=== PATIENT | female | born 1975 | race Caucasian/White ===

== ENCOUNTER 2017-05-09 13:28 | Inpatient (IN) ==
[2017-05-09] MEDS ORDERED: SALINE FLUSH 10ml SYRINGE IVF PRN (13:44)
[2017-05-09] MEDS ORDERED: NS 1,000 ML IV ONE (13:53)
[2017-05-09] MEDS ORDERED: HYDROMORPHONE 2 MG/ML INJECTION IVP ONE ×2 (13:53→16:54)
[2017-05-09] MEDS ORDERED: ONDANSETRON 4 MG/2 ML INJECTION IVP ONE ×2 (13:53→16:39)
--- NOTE | 2017-05-09 13:58 | Emergency Department Report ---
General Adult HPI - General Chief complaint: Abdominal Pain <Marquise Rose - 05/09/17 13:58> Stated complaint: Abd Pain <Marquise Rose 05/09/17 13:58> Time Seen by Provider: 05/09/17 13:29 <Marquise Rose - 05/09/17 13:58> Source: patient <Marquise Rose - 05/09/17 13:58> Mode of arrival: ambulatory <Marquise Rose 05/09/17 13:58> Limitations: no limitations <Marquise Rose 05/09/17 13:58> - History of Present Illness HPI narrative: 41-year-old female presents to emergency department with a chief complaint of abdominal pain. Patient noted onset of symptoms 4 days ago while at home. Patient describes the pain as being located in the center of the abdomen around the umbilicus and radiating toward a large hernia on her right- hand side. Pain is sharp. Pain is moderate. No other radiation. Patient denies any trauma, travel, poorly prepared food or recent antibiotic use. Patient states that she had a hernia repaired the past by Dr. Justin and believes that her symptoms have recurred. She was at home when her symptoms began. Symptoms have been persisted in nature since onset. She does not note any exacerbating or remitting factors. No other complaints or associated symptoms. <Marquise Rose Cain - 05/09/17 13:58> - Related Data Home Medications Medication Instructions Recorded Confirmed Albuterol Sulfate [Proair Hfa] 2 puff INH Q4H PRN #0 04/27/15 05/09/17 Amlodipine Besylate 10 mg PO DAILY #0 03/30/16 05/09/17 Budesonide/Formoterol 80/4.5 1 puff INH BID 04/04/17 05/09/17 [Symbicort Inhaler] Levothyroxine Sodium 300 mcg PO ACB 05/09/17 05/09/17 <MiltonMarquise Barlow - 05/09/17 13:58> Allergies Allergy/AdvReac Type Severity Reaction Status Date / Time lisinopril Allergy Intermediate TONGUE Verified 05/09/17 13:43 SWELLING propranolol Allergy Intermediate TONGUE Verified 05/09/17 13:43 SWELLING <MiltonMarquise Barlow - 05/09/17 13:58> Review of Systems Constitutional: Denies: fever, chills <Marquise Rose 05/09/17 13:58> Eyes: Denies: eye pain, vision change <Marquise Rose 05/09/17 13:58> ENT: Denies: ear pain, throat pain <Marquise Rose 05/09/17 13:58> Cardiovascular: Denies: chest pain, palpitations <Marquise Rose 05/09/17 13: 58> Respiratory: Denies: cough, dyspnea <Marquise Rose 05/09/17 13:58> Gastrointestinal: Reports: abdominal pain, nausea, vomiting. Denies: diarrhea <Marquise Rose 05/09/17 17:59> Genitourinary: Denies: urgency, dysuria <Marquise Rose 05/09/17 13:58> Musculoskeletal: Denies: back pain, arthralgia <Marquise Rose 05/09/17 13:58 > Integumentary: Denies: erythema, rash <Marquise Rose 05/09/17 13:58> Neurological: Denies: headache, numbness <Marquise Rose 05/09/17 13:58> Psychiatric: Denies: anxiety, depression <Marquise Rose 05/09/17 13:58> Endocrine: Denies: fatigue, heat or cold intolerance <Marquise Rose 13:58> Hematological/Lymphatic: Denies: easy bleeding, easy bruising <Marquise Rose 05/09/17 13:58> Allergic/Immunologic: Denies: facial swelling, urticaria <Marquise Rose 06/17 13:58> FOR[facility]LY [facility] Patient Stated Medical History Heart Murmur Yes Hypertension Yes Asthma Yes Chronic Obstructive Pulmonary Yes Disease (COPD) Sleep Apnea Yes Gastroesophageal Reflux Yes Disease Other Yes: cancer MRSA Yes Bipolar Disorder Yes Depression Yes Post Menopausal No Now No <Han An 05/09/17 17:44> Patient Stated Medical History Heart Murmur Yes Hypertension Yes Asthma Yes Chronic Obstructive Pulmonary Yes Disease (COPD) Sleep Apnea Yes Gastroesophageal Reflux Yes Disease Other Yes: cancer MRSA Yes Bipolar Disorder Yes Depression Yes Post Menopausal No Now No <Marquise Rose 05/09/17 13:58> Surgical History: Hernia repair <Marquise Rose 05/09/17 13:58> Family History: Reviewed and noncontributory. <Marquise Rose 05/09/17 13:58> - Social History Smoking status: Current every day smoker <Marquise Rose 05/09/17 13:58> Substance use type: does not use <Marquise Rose 05/09/17 13:58> Alcohol intake frequency: does not drink <Marquise Rose 05/09/17 13:58> Physical Exam - Limitations Limitations: no limitations <Marquise Rose 05/09/17 13:58> - General General appearance: alert, in no apparent distress <Marquise Rose 05/09/17 13:58> - Normal Exams: Head:: Normocephalic without trauma <Marquise Rose 05/09/17 13:58> Eyes:: Pupils are PERRLA w/ EOMI, No scleral icterus, irritation, or foreign bodies noted <Marquise Rose 05/09/17 13:58> ENMT:: No facial trauma, nasal exudates, pharyngeal erythema, or exudates are noted <Marquise Rose 05/09/17 13:58> Dental: No fractured, loose, or missing teeth noted <Marquise Rose 05/09/17 13:58> Neck:: Full range of motion, without adenopathy, JVD, bruits or thyromegaly < Marquise Rose 05/09/17 13:58> Chest/Respirations:: Clear all echevarria, with good airflow, and symmetry bilaterally <Marquise Rose 05/09/17 13:58> Cardiovascular:: Regular rate and rhythm, without murmur or gallop, Pulses 2+ all extremities, capillary refill, <2 seconds all extremities <Marquise Rose 05/09/17 13:58> Abdomen:: Bowel sounds positive, non-distended (Soft. Large abdominal wall hernia noted to R lateral abdomen. no erythema over hernia. No rebound or guarding. Tenderness to palpation over the hernia and right abdomen. NO CVAT.) , no hepatosplenomegaly <Marquise Rose 05/09/17 17:59> Lymphatic:: No lymphadenopathy, or lymphedema noted <Marquise Rose 05/09/17 13:58> Musculoskeletal:: No tenderness, or deformity noted, good range of motion, all extremities <Kalen Rosek Cain 05/09/17 13:58> Integumentary:: No rashes, hives, or bruising noted, hair and nails, without abnormality <Marquise Rose 05/09/17 13:58> Neurological:: Patient is alert, and oriented, cranial nerves, motor/sensory/ cerebellar, exams w/o gross deficits, to observation <MiltonMarquise Cain 13:58> Psychiatric:: Patient exhibits, appropriate attention, emotion and affect < RoseMarquise Cain 05/09/17 13:58> Course Vital Signs Temperature 98.0 F 05/09/17 13:34 Pulse Rate 88 05/09/17 13:34 Respiratory Rate 18 05/09/17 13:34 Blood Pressure 187/113 H 05/09/17 13:34 Pulse Oximetry 98 05/09/17 13:34 Temperature 98.1 F 05/09/17 17:34 Pulse Rate 71 05/09/17 17:34 Respiratory Rate 20 05/09/17 17:34 Blood Pressure 108/74 05/09/17 17:34 Pulse Oximetry 96 05/09/17 17:34 <Marquise Rose 05/09/17 13:58> Medical Decision Making - [facility] Narrative Medical decision making narrative: Labs / imaging were discussed in detail with the patient and questions are answered. Patient is given gentle IV hydration. Patient is given parental narcotic and antiemetic medications intravenously with improvement of symptoms. Patient is discussed with Dr. Justin of general surgery who agrees to admit the patient to his service for treatment of the small bowel obstruction. Patient is in agreement with the current plan of management. She is admitted to the hospital in improved condition. No further orders from accepting physician who is in agreement with the current plan of management. Patient is admitted to the hospital for further evaluation and treatment. Patient has been made nothing by mouth in the emergency department. After seeing the patient and evaluating the patient Dr. Justin has requested the patient be admitted to the service of the hospitalist. Dr. Emiliano Bates agrees to admit the patient to his service. No further orders from accepting physician is in agreement with the current plan of management. <Marquise Rose Cain - 05/09/17 17:59> - Differential Diagnosis Hernia, SBO, Viral Syndrome, abdominal pain <Marquise Rose Cain - 05/09/17 17:59> - Lab Data Result diagrams: 05/09/17 14:00 05/09/17 14:00 <Marquise Rose Cain - 05/09/17 13:58> Lab Results 05/09/17 05/09/17 05/09/17 Range/Units 14:00 14:00 14:00 WBC 9.1 (4.5-11.0) T/MM3 RBC 4.64 (4.00-5.20) M/MM3 Hgb 13.6 (12-16) GM/DL Hct 42.0 (36-46) % MCV 90.5 (80-100) UM3 MCH 29.3 (26-34) UUG MCHC 32.4 (31-37) GM/DL RDW Std Deviation 53.7 H (36.9-50.2) FL Plt Count 342 (130-400) T/MM3 MPV 9.1 L (9.4-12.4) UM3 Immature Gran % (Auto) 0.4 (0.0-0.5) % Neut % (Auto) 66.2 H (33-66) % Lymph % (Auto) 24.2 (23-45) % [place] % (Auto) 6.6 (0-9.0) % Eos % (Auto) 1.9 (0-4) % Baso % (Auto) 0.7 (0-2) % Neut # 6.0 (1.8-7.7) T/MM3 Lymph # 2.2 (1-4.8) T/MM3 [place] # 0.6 (0-0.8) T/MM3 Eos # 0.2 (0-0.5) T/MM3 Baso # 0.1 (0-0.2) T/MM3 Abs Immat Gran (auto) 0.04 H (0.00-0.03) T/MM3 Turbidity < 20 (0-20) Sodium 141 (134-144) MEQ/L Potassium 3.8 (3.6-5) MEQ/L Chloride 101 (98-107) MEQ/L Carbon Dioxide 30 (22-30) MEQ/L Anion Gap 10 (5-15) MEQ/L BUN 12.0 (7-17) MG/DL Creatinine 1.0 (0.7-1.2) MG/DL GFR Calculation 61 BUN/Creatinine Ratio 12 (6-26) RATIO Glucose 105 (65-110) MG/DL Calculated Osmolality 271 (261-280) MOSM/KG Calcium 9.1 (8.4-10.2) MG/DL Total Bilirubin 2.10 H (0.20-1.30) MG/DL Icterus Index < 2 (0-7) AST 30 (14-36) U/L ALT 43 (9-52) U/L Alkaline Phosphatase 50 (38-126) U/L Troponin I < 0.012 (0-0.12) ng/ml Total Protein 7.0 (6.3-8.2) G/DL Albumin 3.9 (3.5-5.0) G/DL Globulin 3.1 (2.4-3.6) G/DL Albumin/Globulin Ratio 1.3 (1.1-2.2) RATIO Lipase 62 (23-300) U/L Plasma Lactate 1.3 (0.6-2.2) MMOL/L Specimen Hemolysis < 15 < 15 (0-25) Ur Collection Type Urine Color (YELLOW) Urine Clarity Urine pH (5.0-8.0) Ur Specific [place] (1.015-1.025) Urine Protein (NEGATIVE) Urine Glucose (UA) (NEGATIVE) Urine Ketones (NEGATIVE) Urine Occult Blood (NEGATIVE) Urine Nitrate (NEGATIVE) Urine Bilirubin (NEGATIVE) Urine Urobilinogen (NORMAL) EU/DL Ur Leukocyte Esterase (NEGATIVE) Urinalysis Comment Urine Test (Negative) 05/09/17 05/09/17 Range/Units 14:58 14:58 WBC (4.5-11.0) T/MM3 RBC (4.00-5.20) M/MM3 Hgb (12-16) GM/DL Hct (36-46) % MCV (80-100) UM3 MCH (26-34) UUG MCHC (31-37) GM/DL RDW Std Deviation (36.9-50.2) FL Plt Count (130-400) T/MM3 MPV (9.4-12.4) UM3 Immature Gran % (Auto) (0.0-0.5) % Neut % (Auto) (33-66) % Lymph % (Auto) (23-45) % [place] % (Auto) (0-9.0) % Eos % (Auto) (0-4) % Baso % (Auto) (0-2) % Neut # (1.8-7.7) T/MM3 Lymph # (1-4.8) T/MM3 [place] # (0-0.8) T/MM3 Eos # (0-0.5) T/MM3 Baso # (0-0.2) T/MM3 Abs Immat Gran (auto) (0.00-0.03) T/MM3 Turbidity (0-20) Sodium (134-144) MEQ/L Potassium (3.6-5) MEQ/L Chloride (98-107) MEQ/L Carbon Dioxide (22-30) MEQ/L Anion Gap (5-15) MEQ/L BUN (7-17) MG/DL Creatinine (0.7-1.2) MG/DL GFR Calculation BUN/Creatinine Ratio (6-26) RATIO Glucose (65-110) MG/DL Calculated Osmolality (261-280) MOSM/KG Calcium (8.4-10.2) MG/DL Total Bilirubin (0.20-1.30) MG/DL Icterus Index (0-7) AST (14-36) U/L ALT (9-52) U/L Alkaline Phosphatase (38-126) U/L Troponin I (0-0.12) ng/ml Total Protein (6.3-8.2) G/DL Albumin (3.5-5.0) G/DL Globulin (2.4-3.6) G/DL Albumin/Globulin Ratio (1.1-2.2) RATIO Lipase (23-300) U/L Plasma Lactate (0.6-2.2) MMOL/L Specimen Hemolysis (0-25) Ur Collection Type Urine, clean catch Urine Color [place] (YELLOW) Urine Clarity Sl cloudy Urine pH 6.0 (5.0-8.0) Ur Specific [place] 1.025 (1.015-1.025) Urine Protein Trace A (NEGATIVE) Urine Glucose (UA) Negative (NEGATIVE) Urine Ketones Negative (NEGATIVE) Urine Occult Blood Negative (NEGATIVE) Urine Nitrate Negative (NEGATIVE) Urine Bilirubin 1+ A (NEGATIVE) Urine Urobilinogen >=8.0 A (NORMAL) EU/DL Ur Leukocyte Esterase Negative (NEGATIVE) Urinalysis Comment Microscopic not ind. Urine Test Negative (Negative) <Marquise Rose 05/09/17 14:46> - Radiology Data CT ABD/PELVIS: Large right sided spigelian hernia with SBO otherwise unremarkable. <Marquise Rose 05/09/17 17:59> - EKG Data EKG #1 EKG results narrative: Sinus rhythm. Incomplete right bundle branch block. Non-specific T-wave changes. 73 bpm. No STEMI. <Marquise Rose 05/09/17 14:46> Disposition Clinical Impression: Hernia, SBO (small bowel obstruction) <Marquise Rose 05/09/17 17:59> Disposition: 02 To [facility] <Marquise Rose 05/09/17 17:59> Print Language: Georgian <Marquise Rose 05/09/17 17:59> Condition: Improved <Marquise Rose 05/09/17 17:59> Instructions: Bowel Obstruction (ED), Ventral Hernia (ED) <Marquise Rose 17:59> Prescriptions: No Action Budesonide/Formoterol 80/4.5 [Symbicort Inhaler] 1 puff INH BID Levothyroxine Sodium 300 mcg PO ACB Albuterol Sulfate [Proair Hfa] 2 puff INH Q4H PRN #0 PRN Reason: SHORTNESS OF AIR Amlodipine Besylate 10 mg PO DAILY #0 <Marqusie Rose 05/09/17 13:58> Referrals: Sarah Berumdez APRN [Family Provider] - <Marquise Rose 05/09 13:58> Forms: <Marquise Rose 05/09/17 13:58> Time of Disposition: 16:45 (Admit. Dr. Almazan. ) <Marquise Rose 05/09/17 17:59> - Seen By: physician <Marquise Rose 05/09/17 17:59>
--- NOTE | 2017-05-09 16:36 | CT Scan Report ---
Indication: ABD Pain / Flank Pain - R PROCEDURE: CT abdomen pelvis wo con: Encounter: Initial Comparison: CT abdomen pelvis, 06/26/2015 Technique: Axial, coronal, and sagittal images of the abdomen and pelvis was performed without intravascular contrast. The study was repeated as the right lateral abdominal pelvic wall was not included on the initial series. Radiation dose reduction techniques were utilized. Findings: There is a large right spigelian hernia with entrapped bowel loops and distended small bowel loops are noted proximally and in relation to hernia defect. The colon is relatively decompressed. There appears to be stranding of the mesentery within the hernia defect. No definitive abscess is clearly apparent. Minimal colonic diverticulosis without adjacent inflammatory changes. No free air. Liver, spleen, and adrenal glands appear unremarkable. Gallbladder somewhat distended. Pancreas demonstrates no mass effect. No renal mass. No hydronephrosis. Reproductive viscera are unremarkable. The lung bases are clear. Mild age-related degenerative changes of the bony elements. Impression: Right spigelian hernia with entrapped bowel loops creating a small bowel obstruction. .
--- NOTE | 2017-05-09 18:17 | General Surgery Consult Note ---
Consult date: 05/09/17 Attending Physician: Hospitalist team Reason for consult: abdominal pain (possible bowel obstruction) PFSH Patient Stated Medical History Heart Murmur Yes Hypertension Yes Asthma Yes Chronic Obstructive Pulmonary Yes Disease (COPD) Sleep Apnea Yes Gastroesophageal Reflux Yes Disease Other Yes: cancer MRSA Yes Bipolar Disorder Yes Depression Yes Post Menopausal No Now No Surgical History: Laparoscopic vental Hernia repair 06-24-2015. Nephrectomy 05-01-2014. Carpal TUnnel release. . Family History: Mother - depression, HTN, mental illness father- heart disease - Social History Smoking status: Current every day smoker Alcohol intake: current Alcohol intake frequency: a few times a month Medications Home Medications Medication Instructions Recorded Confirmed Type Albuterol Sulfate [Proair Hfa] 2 puff INH Q4H PRN #0 04/27/15 05/09/17 History Amlodipine Besylate 10 mg PO DAILY #0 03/30/16 05/09/17 History Budesonide/Formoterol 80/4.5 1 puff INH BID 04/04/17 05/09/17 History [Symbicort Inhaler] Levothyroxine Sodium 300 mcg PO ACB 05/09/17 05/09/17 History Allergies Allergy/AdvReac Type Severity Reaction Status Date / Time lisinopril Allergy Intermediate TONGUE Verified 05/09/17 13:43 SWELLING propranolol Allergy Intermediate TONGUE Verified 05/09/17 13:43 SWELLING Review of Systems 10-point ROS: negative except for HPI and the following:, not fully reviewed ROS unobtainable: due to mental status (currently of her meds and most of her speach is unintelligable and she speaking irrationally.) - Vital Signs Last Vital Signs Temp 98.1 F 05/09/17 17:34 Pulse 71 05/09/17 17:34 Resp 20 05/09/17 17:34 BP 108/74 05/09/17 17:34 Pulse Ox 96 05/09/17 17:34 - Laboratory Result Diagrams: 05/09/17 14:00 05/09/17 14:00 General Surgery Results - Results Labs: 05/09/17 14:00 05/09/17 14:00 Hospital Course Summary Disclaimer: The visit summary below is not to be considered part of the above Progress Note.
[2017-05-09] MEDS ORDERED: ALBUTEROL/IPRATROPIUM 2.5mg-0.5mg/3ml NEB AEROSOL PRN (18:45)
[2017-05-09 18:50] VITALS: BMI 47.0
[2017-05-09] MEDS: NS with KCL 20 mEq 20 MEQ/1,000 ML IV.SOLN IV SCH (18:51)
[2017-05-09] MEDS ORDERED: ALBUTEROL/IPRATROPIUM 2.5mg-0.5mg/3ml NEB AEROSOL SCH (19:00)
--- NOTE | 2017-05-09 20:29 | History & Physical Report ---
History of Present Illness Date: 05/09/17 Chief complaint: Ab pain HPI: 41 y/o female [place] [facility] [place] secondary to abdominal pain. Reports pain present for several weeks, but increasing in the last 4 days. Pain in middle of abdomen, crampy/fullness sensation that will wax and wane. Typically pain increases after she eats. Has been hungry, but harder to eat due to pain she gets. Will feel waves of pain move across abdomen. Stools had slowed down. Yesterday did have bowel movement, but unfortunately did not help decrease her discomfort. She has a hernia on the right side of her abdomen-has also been feeling more fullness and discomfort in this area. Has nausea, worse when has pain. No increased acid reflux. Not having pain with urination. Breathing stable. Very emotional during the interview and examination: has been off her Bipolar meds from [place] (feels she needs to go back there to get her medications straightened out). Evaluated in ED. Lab looking benign other than total bilirubin 2.1. CT of ab/ pelvis showing evidence of small bowel obstruction. Patient subsequently place in inpatient admission for further evaluation and treatment of her small bowel obstruction confirmed by CT evidence. Anticipate length of stay is thought to be greater than 2 midnights. Review of Systems ROS unobtainable: due to mental status (Pt very anxious, hard to stay on topic. ) - Cardiovascular Cardiovascular: Absent: palpitations - Respiratory Respiratory: Absent: wheezing, chest congestion - Gastrointestinal Gastrointestinal: Present: as per HPI. Absent: diarrhea PFSH Patient Stated Medical History Heart Murmur Yes Hypertension Yes Asthma Yes Chronic Obstructive Pulmonary Yes Disease (COPD) Sleep Apnea Yes Gastroesophageal Reflux Yes Disease Other Yes: cancer MRSA Yes Other Infectious Yes: HEP C Bipolar Disorder Yes Depression Yes Surgical History: Hernia repair - Social History Smoking status: Current every day smoker Medications Home Medications Medication Instructions Recorded Confirmed Type Albuterol Sulfate [Proair Hfa] 2 puff INH Q4H PRN #0 04/27/15 05/09/17 History Amlodipine Besylate 10 mg PO DAILY #0 03/30/16 05/09/17 History Budesonide/Formoterol 80/4.5 1 puff INH BID 04/04/17 05/09/17 History [Symbicort Inhaler] Levothyroxine Sodium 300 mcg PO ACB 05/09/17 05/09/17 History Allergies Allergy/AdvReac Type Severity Reaction Status Date / Time lisinopril Allergy Intermediate TONGUE Verified 05/09/17 13:43 SWELLING propranolol Allergy Intermediate TONGUE Verified 05/09/17 13:43 SWELLING Exam Vital Signs: Temperature 98 F 05/09/17 20:00 Pulse Rate 75 05/09/17 20:00 Respiratory Rate 16 05/09/17 20:00 Blood Pressure 155/103 H 05/09/17 20:00 Pulse Oximetry 96 05/09/17 20:00 Oxygen Delivery Method Room Air Height: 1.68 m Weight: 132 kg Body Mass Index: 47.0 - Constitutional Present: mild distress, well nourished, well developed, morbidly obese, disheveled, agitated (Restless) - Routine HEENT Exam Head: Present: normocephalic, atraumatic Eye: Present: EOMI, PERRL ENT: Present: mucous membranes dry - Routine Neck Exam Present: supple, trachea midline. Absent: tracheal deviation - Routine Respiratory Exam Present: CTA bilaterally. Absent: accessory muscle use, respiratory distress, rhonchi, wheezes, crackles - Routine Cardiovascular Exam Present: RRR. Absent: murmur - Routine Abdominal Exam Present: soft, tenderness (Mild tenderness to mid abdomen), non distended, hernia (Right abdominal wall ). Absent: normoactive bowel sounds (Bowel sound are not present ), rebound, guarding, firm, rigid - Routine Extremities Exam Present: no edema. Absent: cyanosis, clubbing - Routine Skin Exam Present: intact, warm, normal turgor. Absent: pallor, mottling - Routine Neurological Exam Present: alert, CN II-XII intact, moving all extremities, vision grossly intact , hearing grossly intact. Absent: motor deficit - Routine Psychiatric Exam Present: anxious, agitated, manic Results - Labs CBC & Chem 7: 05/09/17 14:00 05/09/17 14:00 Assessment and Plan (1) SBO (small bowel obstruction) Current visit: Yes Status: Acute DVT Prophylaxis: SCD's Resuscitation Status: Full Code Assessment and Plan: Impression Small bowel obstruction HTN COPD/Asthma SUNITHA Tobacco dependency Hypothyroidism Hep C Hx renal Cell Ca with partial right nephrectomy Bipolar affective disorder Anxiety Morbid obesity with BMI 47.[address] in inpatient admission status - anticipate greater than 2 midnights of care needed due to small bowel obstruction. Start IVF of 1/2NS with 20meQ KCl at 100cc/hr for hydration. NPO due to SBO - may have meds with sips of water. Zofran prn nausea. Dilaudid prn pain. Consult with Dr Justin for surgical evaluation of her SBO. SCD for DVT prevention. May have Nicotine patch - RT to provide tobacco cessation information in am. Ativan prn anxiety. Check TSH secondary to hypothyroidism and anxiety. Recheck CMP in am due to elevated bilirubin and due to IVF use. Will recheck CBC due to SBO. Care to return to [facility] at time of [place] [facility] Case discussed with Dr Rose (ED) and Dr Justin (Sx). - Time spent with patient greater than 35 minutes Hospital Course Summary Disclaimer: The visit summary below is not to be considered part of the above Progress Note. Hospital Course: 05/09/17 Impression Small bowel obstruction HTN COPD/Asthma SUNITHA Tobacco dependency Hypothyroidism Hep C Hx renal Cell Ca with partial right nephrectomy Bipolar affective disorder Anxiety Morbid obesity with BMI [address] in inpatient admission status - anticipate greater than 2 midnights of care needed due to small bowel obstruction. Start IVF of 1/2NS with 20meQ KCl at 100cc/hr for hydration. NPO due to SBO - may have meds with sips of water. Zofran prn nausea. Dilaudid prn pain. Consult with Dr Justin for surgical evaluation of her SBO. SCD for DVT prevention. May have Nicotine patch - RT to provide tobacco cessation information in am. Ativan prn anxiety. Check TSH secondary to hypothyroidism and anxiety. Recheck CMP in am due to elevated bilirubin and due to IVF use. Will recheck CBC due to SBO. Care to return to [facility] at time of discharge [place] [facility]
[2017-05-09] MEDS ORDERED: NICOTINE 21 MG PATCH TD PRN (21:33)
[2017-05-09] MEDS: HYDROMORPHONE 2 MG/ML INJECTION IVP PRN (23:47)
[2017-05-10] MEDS: NS with KCL 20 mEq 20 MEQ/1,000 ML IV.SOLN IV SCH ×2 (04:55→18:30)
--- NOTE | 2017-05-10 07:26 | Consultation ---
DATE OF CONSULTATION FINDINGS Mrs. York is a 41-year-old female who is very well known my surgical practice. I have taken care of her in the past as a result of a large right flank hernia. The patient presented to our ER facility today as a result of her history for abdominal pain. The patient does have a known history for bipolar disorder and has been off her medications. The patient's speech was quite pressured and it was difficult to understand the patient as a result of her slurred/pressured speech. From what I can gather through conversation with the patient, it appears that she has had a component of abdominal pain for the last 3 days. She states that she has had pain more so within her anterior abdominal wall than within her known recurrent hernia involving the right flank region. The patient states that she has had a component of some nausea and vomiting. The patient states that today she is actually feeling better than she has over the last couple of days. Nonetheless, with this persistent abdominal pain, she was concerned and presented to our emergency room for further evaluation. Upon my entering the room the patient was requesting that she could leave this evening. I informed the patient that I did not feel that this was in her best interest. PAST MEDICAL HISTORY Performed by my nurse practitioner, Joni Vicente. PAST SURGICAL HISTORY Performed by my nurse practitioner, Joni Vicente. MEDICATIONS Performed by my nurse practitioner, Joni Vicente. ALLERGIES Performed by my nurse practitioner, Joni Vicente. SOCIAL HISTORY Performed by my nurse practitioner, Joni Vicente. FAMILY HISTORY Performed by my nurse practitioner, Joni Vicente. REVIEW OF SYSTEMS Performed by my nurse practitionerJoni. PHYSICAL EXAMINATION Mrs. York is a 41-year-old female who did appear to be somewhat uncomfortable. Again, it appeared that she was somewhat in a manic phase of her bipolar disorder and her speech was quite pressured. VITALS: Temperature - afebrile, normotensive. Current vitals include temperature 98.1, pulse 71, respirations 20, blood pressure 108/74, SaO2 96% on room air.. HEENT: Normocephalic. Pupils are equal, round and reactive to light and accommodation. CHEST: Clear to auscultation bilaterally. HEART: Regular rate and rhythm. Normal S1 and S2 without gallops, murmurs or clicks. ABDOMEN: Visualization of the abdomen reveals it to be quite protuberant in nature, i.e. the patient has a component of obesity. Additionally upon visualization the patient does have an obvious large right flank hernia. Palpation of her abdomen revealed some mild tenderness within her midabdomen. There was also some noted mild tenderness overlying her visible right flank hernia. The patient, however, was without any evidence for guarding or rebound tenderness upon palpation. This flank hernia is perhaps 30 cm or more in diameter and is quite large. EXTREMITIES: Without clubbing, cyanosis, or edema. NEURO: Cranial nerves II-XII grossly intact. Patient is without focal motor or sensory deficits. LABORATORY/RADIOGRAPH EVALUATION The patient had a CBC and her white count was normal at 9.1. A CMP was obtained and her total bilirubin was found to be slightly elevated at 2.1. CT scan of her abdomen and pelvis was obtained. Dictated report was that the patient had a large spigelian hernia. I do not feel the patient has a spigelian hernia but a large right flank hernia. She has undergone a prior nephrectomy through a right flank incision, resulting in eventration of her flank musculature and the formation of this large hernia. Radiologist also dictated that there was a component of small bowel obstruction. I did not personally see marked dilatation of the small bowel. Upon the business development specialist film of the CT scan one can see some dilatation of her small bowel within the right flank region. One can see on CT scan some dilatation of a few loops of small bowel within the right midabdomen. ASSESSMENT 41-year-old female, with associated medical comorbidities, who presents with a several-day history of abdominal pain and a known large right flank hernia/ eventration of flank musculature. PLAN At this point in time I do not believe the patient has an acute surgical abdomen. It was my request that the hospitalist system admit the patient given her significant associated medical comorbidities. Would recommend keeping the patient n.p.o. and provide intravenous narcotics and intravenous antiemetics as needed. Will follow with serial abdominal examinations. Tomorrow I may obtain a Gastrografin small bowel follow-through to rule in or rule out a small bowel obstruction with more certainty. Will continue to follow the patient closely. The patient had undergone an attempted repair of this large right flank hernia in the past. Her postoperative course was quite complicated and she did require mechanical ventilation for an extended period of time. I do feel the patient is at a significantly high increased operative risk given her marked obesity and associated medical comorbidities. Will follow the patient closely as stated above. ANN
[2017-05-10] MEDS ORDERED: NICOTINE 21 MG PATCH TD PRN (07:30)
[2017-05-10] MEDS: ONDANSETRON 4 MG/2 ML INJECTION IVP PRN ×2 (08:59→17:10)
[2017-05-10] MEDS: HYDROMORPHONE 2 MG/ML INJECTION IVP PRN ×4 (09:00→21:56)
[2017-05-10] MEDS ORDERED: DIATRIZOATE MEGLUMINE/SOD. (66%/10%) 120ml SOLN ONE (09:02)
[2017-05-10] MEDS ORDERED: INHALER ASSIST DEVICE (Optichamber) MC ONE (09:30)
[2017-05-10] MEDS: LEVOTHYROXINE 150 MCG TABLET PO SCH (12:08)
[2017-05-10] MEDS: NICOTINE PATCH REMOVAL TD SCH ×2 (12:08→21:38)
[2017-05-10] MEDS: BUDESONIDE/FORMOTEROL 80/4.5mcg INHALER ORAL INH SCH ×3 (14:01→21:12)
--- NOTE | 2017-05-10 15:15 | XRay Report ---
Indication: possible SBO PROCEDURE: XR small bowel follow through: Encounter: Initial Comparison: CT abdomen dated 05/09/2017 Findings: The patient was given oral contrast and images were of the abdomen were obtained over 3 1/2 hours. There is slow transit of the contrast through the small bowel with mild dilation but it eventually makes it to the large bowel without definite focal transition point. There is a large amount of small bowel located and a large amount hernia defect in the right abdominal wall but a definite extrinsic compression or obstruction is not appreciated with certainty. Impression: Possible small bowel partial obstruction or ileus with mild dilation of the small bowel and slow passage to the large bowel. .
[2017-05-10] MEDS ORDERED: HALOPERIDOL 5 MG/ML INJECTION IVP PRN (16:25)
--- NOTE | 2017-05-10 16:29 | Progress Note ---
Subjective: Guerda reports increased abdominal pain intermittently today; she describes tight/squeezing pain that comes in spasms. She has persistent nausea but was able to keep Gastrografin down when administered for study earlier today. She denies having a bowel movement and is unsure if she's been passing any gas. She describes baseline exertional dyspnea due to her COPD and what she characterizes as normal lightheadedness. She reports that anxiety is worse than usual which she attributes to being off usual medications for bipolar affective disorder. She's previously been treated with Geodon but is unsure of the dose and was agreeable to resuming medications and psychiatric care including psychiatric assessment while hospitalized. She additionally acknowledged that she's not been taking levothyroxine in the recent past indicating that her or ex- makes her feel paranoid about medications and then she stops taking them. Objective Vital signs: Temperature 98 F 05/10/17 08:57 Pulse Rate 64 05/10/17 12:57 Respiratory Rate 18 05/10/17 12:57 Blood Pressure 145/101 H 05/10/17 12:57 Pulse Oximetry 96 05/10/17 12:57 Oxygen Delivery Method Room Air EXAM General-alert, grimaces intermittently, speech mumbled HEENT-conjugate gaze, hirsute Lungs-respirations nonlabored, diminished inspiratory effort, breath sounds clear Cardiac-regular rhythm, S1-S2 Abd-soft, generalized tenderness, episodic bowel sounds-increased bowel sounds associated with grimacing; large right lateral hernia Ext-without edema Neuro-moving upper extremities spontaneously Psych-push of speech, tangential occasionally - Weight: 132.1 kg Results - Labs CBC & Chem 7: 05/10/17 05:10 05/10/17 05:10 - Imaging and Cardiology Abdominal x-ray Status: image reviewed by me (Gastrografin upper GI demonstrates very slow passage with mild dilatation of small bowel loops with some Gastrografin entering the colon after 3-1/2 hours; multiple small bowel loops in the right lateral abdominal wall hernia) Assessment and Plan (1) SBO (small bowel obstruction) Current visit: Yes Status: Acute DVT Prophylaxis: SCD's Resuscitation Status: Full Code Assessment and Plan: Impression Small bowel obstruction, partial versus ileus Generalized abdominal pain HTN COPD/Asthma SUNITHA Tobacco dependency Hypothyroidism Hep C Hx Renal Cell Ca with partial right nephrectomy Bipolar affective disorder Anxiety Morbid obesity with BMI 47.0 Plan: Gastrografin study inconsistent with small bowel obstruction although patient may have ileus or partial SBO. Continue IVF of 1/2NS with 20meQ KCl at 100cc/hr for hydration. Zofran prn nausea and Dilaudid prn pain. Discussed results of Gastrografin study with Dr Justin-initiate clear liquids , advance diet as tolerates. Ativan prn anxiety, when necessary Haldol ordered. Psychiatry consulted, anticipate resumption of Geodon but will defer to Dr. Woods. Patient agitated intermittently overnight-threatening to leave AGAINST MEDICAL ADVICE; calmer today but expressing frustrations. TSH 234 consistent with history given by patient of not using medication- levothyroxine resumed. Blood pressure consistently elevated-resume amlodipine. CODE STATUS clarified-full code. Discussed with nursing, case management, and Dr. Justin. Sepsis Assessment - Evaluation Sepsis screening result: No Definite Risk Hospital Course Summary Disclaimer: The visit summary below is not to be considered part of the above Progress Note. Hospital Course: 05/09/17 Impression Small bowel obstruction HTN COPD/Asthma SUNITHA Tobacco dependency Hypothyroidism Hep C Hx renal Cell Ca with partial right nephrectomy Bipolar affective disorder Anxiety Morbid obesity with BMI [address] in inpatient admission status - anticipate greater than 2 midnights of care needed due to small bowel obstruction. Start IVF of 1/2NS with 20meQ KCl at 100cc/hr for hydration. NPO due to SBO - may have meds with sips of water. Zofran prn nausea. Dilaudid prn pain. Consult with Dr Justin for surgical evaluation of her SBO. SCD for DVT prevention. May have Nicotine patch - RT to provide tobacco cessation information in am. Ativan prn anxiety. Check TSH secondary to hypothyroidism and anxiety. Recheck CMP in am due to elevated bilirubin and due to IVF use. Will recheck CBC due to SBO. [facility] [place] [facility] [place] 05/10/17 16:55 Gastrografin study inconsistent with small bowel obstruction although patient may have ileus or partial SBO. Continue IVF of 1/2NS with 20meQ KCl at 100cc/hr for hydration. Zofran prn nausea and Dilaudid prn pain. Discussed results of Gastrografin study with Dr Justin-initiate clear liquids , advance diet as tolerates. Ativan prn anxiety, when necessary Haldol ordered. Psychiatry consulted, anticipate resumption of Geodon but will defer to Dr. Woods. Patient agitated intermittently overnight-threatening to leave AGAINST MEDICAL ADVICE; calmer today but expressing frustrations. TSH 234 consistent with history given by patient of not using medication- levothyroxine resumed. Blood pressure consistently elevated-resume amlodipine. CODE STATUS clarified-full code.
[2017-05-10] MEDS: AMLODIPINE 10 MG TABLET PO SCH (17:07)
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
[2017-05-11] MEDS ORDERED: FALL RISK - PHARMACY CONSULT MC PRN (03:51)
[2017-05-11] MEDS: NS with KCL 20 mEq 20 MEQ/1,000 ML IV.SOLN IV SCH ×3 (04:08→11:57)
[2017-05-11] MEDS: HYDROMORPHONE 2 MG/ML INJECTION IVP PRN (05:13)
[2017-05-11] MEDS: LEVOTHYROXINE 150 MCG TABLET PO SCH (06:21)
[2017-05-11 07:28] VITALS: BP 135/91; PULSE 68; TEMP 96.6; O2SAT 93
[2017-05-11] MEDS: BUDESONIDE/FORMOTEROL 80/4.5mcg INHALER ORAL INH SCH (09:26)
[2017-05-11 09:29] VITALS: RESP 16
--- NOTE | 2017-05-11 09:46 | Progress Note ---
DATE 05/10/2017 FINDINGS Upon my entering the room Mrs. York was sleeping comfortably. Upon awakening the patient she began to request additional narcotics. She did not appear to be in severe distress. VITALS: Afebrile. Normotensive. CHEST: Clear to auscultation bilaterally. HEART: Regular rate and rhythm. Normal S1 and S2 without gallops, murmurs or clicks. ABDOMEN: Visualization of the abdomen reveals a persistent large right flank hernia. Palpation of the abdomen revealed some ongoing tenderness within the midabdomen as well as overlying her known flank hernia. There was, however, no evidence for involuntary guarding or rebound tenderness. The patient did not have peritoneal signs. LABORATORY/RADIOGRAPH EVALUATION The patient had a CBC today and her white count remains normal at 7.7. Hemoglobin is normal at 13.8. CMP was obtained and found to be essentially within normal limits. TSH level was obtained and found to be quite high at 234. Urine drug screen was sent out yesterday and she was found to have methamphetamines, amphetamines, cannabinoids and opiates, i.e. her urine toxicology was markedly positive. Radiographically, the patient had a small bowel series obtained today to document that she did or did not have a complete small bowel obstruction. Final report was that of a "possible small bowel obstruction or ileus with mild dilatation of small bowel and slow passage to the large bowel." Looking at her 4-hour film, one could see contrast throughout the entire colon and into the descending colon. I did not see any significant small bowel dilatation to suggest obstruction. ASSESSMENT 41-year-old female with multiple medical comorbidities, history for drug abuse, a known large right flank hernia/eventration following a right nephrectomy. Patient without a complete small bowel obstruction. PLAN I do believe we could go ahead and begin to feed the patient and continue to follow her from a clinical standpoint. I do feel that her hernia is quite complicated in nature and the patient may benefit, if possible, from being sent to a tertiary care facility for further evaluation and management of her large right flank hernia. The patient at this time remains to be without an acute surgical abdomen. Will continue to follow along in the patient's care. [facility] CENTERSalazar
[2017-05-11] MEDS ORDERED: ACETAMINOPHEN 325 MG TABLET PO PRN (10:30)
[2017-05-11] MEDS: AMLODIPINE 10 MG TABLET PO SCH (10:34)
--- NOTE | 2017-05-11 11:43 | Discharge Instructions ---
Discharge Plan - Med Rec/Dispo Referrals/Follow Up: Sarah Bermudez APRN [Family Provider] - 1 Week Robin Instructions: Bowel Obstruction (DC) Prescriptions: New Acetaminophen [Tylenol] 325 - 650 mg PO Q5H PRN tablet PRN Reason: Discomfort Amlodipine [Norvasc] 10 mg PO DAILY #30 tablet Continue Albuterol Sulfate [Proair Hfa] 2 puff INH Q4H PRN #1 [id number].[id number] PRN Reason: SHORTNESS OF AIR Budesonide/Formoterol 80/4.5 [Symbicort Inhaler] 1 puff INH BID #1 inhaler Levothyroxine Sodium 300 mcg PO ACB #30 tablet No Action Amlodipine Besylate 10 mg PO DAILY #0 Discharge Instructions/Outpatient Orders: Final Provider Discharge Instructions Location: Determined By Patient - Disposition 01 Discharged Home, Self-Care
[2017-05-11] MEDS: NICOTINE PATCH REMOVAL TD SCH (13:20)
--- NOTE | 2017-05-11 14:13 | Progress Note ---
DATE 05/11/2017 FINDINGS Preeti was sleeping soundly upon my entering the room. It did take a little while to awaken the patient. Upon awakening the patient, she denied much in the way of abdominal pain today. She states that she is feeling better. Speech was still somewhat "mumbled in nature". At times it was difficult to understand what the patient was saying. PHYSICAL EXAM VITALS: Afebrile. Normotensive. Current vitals include temperature 96.6, pulse 68, blood pressure 135/91, SaO2 93% on room air. CHEST: Clear to auscultation bilaterally. HEART: Regular rate and rhythm. Normal S1, S2, without gallops, murmurs or clicks. ABDOMEN: Palpation of the abdomen today reveals it to be soft and completely nontender. Patient did not have any element of guarding. LABORATORY EVALUATION The patient had a BMP today that was unremarkable. ASSESSMENT 41-year-old female with multiple associated medical comorbidities who presents with known large right flank hernia and questionable small bowel obstruction. Patient without radiographic evidence for small bowel obstruction. Patient currently doing well. PLAN I do believe the patient could be discharged to home. Given her significant medical comorbidities, obesity, and degree of flank hernia I do believe the patient would be best served by going to a tertiary care facility for further evaluation/management of her right flank hernia. I informed the patient that I felt that she may be better served by seeing a "hernia specialist" in [place] or the [facility] in [place]. ANN
--- NOTE | 2017-05-11 23:29 | Discharge Summary ---
Discharge Information Date of admission: 05/09/17 18:30 Anticipated date of discharge: 05/11/17 Attending Physician: Emiliano Bates MD Primary care physician: Sarah Bermudez APRN Consults: Isidro Justin Shean R - Discharge Diagnosis Discharge Diagnosis: Partial small bowel obstruction Right flank incisional hernia Hypothyroid Bipolar affective disorder Hypertension COPD Obstructive sleep apnea - Laboratory Labs: 05/10/17 05:10 05/11/17 04:26 Bilirubin on admission was 2.1 dropping to 1.9 on 05/10, remainder of liver enzymes were unremarkable. TSH 234 on 05/10 Urine drug screen positive for opiates, methamphetamine, and marijuana. - Radiology Radiology: CT of abdomen and pelvis on admission demonstrated: There is a large right spigelian hernia with entrapped bowel loops and distended small bowel loops are noted proximally and in relation to hernia defect. The colon is relatively decompressed. There appears to be stranding of the mesentery within the hernia defect. No definitive abscess is clearly apparent. Minimal colonic diverticulosis without adjacent inflammatory changes. No free air. Gastrografin upper GI with small bowel follow-through on 05/10: The patient was given oral contrast and images were of the abdomen were obtained over 3 1/2 hours. There is slow transit of the contrast through the small bowel with mild dilation but it eventually makes it to the large bowel without definite focal transition point. There is a large amount of small bowel located and a large amount hernia defect in the right abdominal wall but a definite extrinsic compression or obstruction is not appreciated with certainty. Impression: Possible small bowel partial obstruction or ileus with mild dilation of the small bowel and slow passage to the large bowel. History of Present Illness HPI: 41 y/o female presents to [facility] secondary to abdominal pain. Reports pain present for several weeks, but increasing in the last 4 days. Pain in middle of abdomen, crampy/fullness sensation that will wax and wane. Typically pain increases after she eats. Has been hungry, but harder to eat due to pain she gets. Will feel waves of pain move across abdomen. Stools had slowed down. Yesterday did have bowel movement, but unfortunately did not help decrease her discomfort. She has a hernia on the right side of her abdomen-has also been feeling more fullness and discomfort in this area. Has nausea, worse when has pain. No increased acid reflux. Not having pain with urination. Breathing stable. Very emotional during the interview and examination: has been off her Bipolar meds from [place] (feels she needs to go back there to get her medications straightened out). Evaluated in ED. Lab looking benign other than total bilirubin 2.1. CT of ab/ pelvis showing evidence of small bowel obstruction. Patient subsequently place in inpatient admission for further evaluation and treatment of her small bowel obstruction confirmed by CT evidence. Anticipate length of stay is thought to be greater than 2 midnights. Hospital Course This is a general summary of the patient's hospital course. For more details refer to the complete medical record. Hospital course: Impression Small bowel obstruction HTN COPD/Asthma SUNITHA Tobacco dependency Polysubstance abuse Hypothyroidism Hep C Hx renal Cell Ca with partial right nephrectomy Bipolar affective disorder Anxiety Morbid obesity with BMI 47.0 Hospital course: Mrs. York was admitted with probable small bowel obstruction. She was seen in consultation by Dr. Justin and treated with IV fluids. The patient was initially nothing by mouth with sips/chips for oral comfort. After reviewing films Dr. Justin felt bowel obstruction was unlikely and that ileus or partial obstruction was more likely. The patient subsequently underwent Gastrografin upper GI with small bowel follow-through the following day with findings suggestive of partial small bowel obstruction. Following the study the patient had multiple bowel movements and improvement in pain and nausea. Clear liquid diet was started late in the day on 05/10 and diet advanced the following morning. Patient was able to tolerate diet as advanced and was subsequently felt stable for discharge on the afternoon of 05/11. Dr. Justin suggested patient consider follow-up with the hernia specialist in [facility] due to complexity of her abdominal findings should she continue to have GI symptoms. The first night of hospitalization the patient was intermittently agitated and threatened to leave AGAINST MEDICAL ADVICE. The following morning she was much calm her and voiced occasional frustrations but did not resist medical care. She acknowledged being off her usual psychiatric medications and initially indicated that she was open to reinitiating treatment. Dr. Ley was consulted for assistance; the patient subsequently indicated she only wish to take Valium and did not wish to resume an antipsychotic as previously prescribed. No interventions were initiated by psychiatry as result. On admission the patient reported being off all of her usual medications. Blood pressure was modestly elevated and amlodipine was resumed. TSH was found to be significantly elevated and prior dose of Levaquin of thyroxine restarted. Albuterol and Symbicort inhalers were reordered and prescriptions provided at discharge should patient choose to fill them. Tobacco cessation was discussed throughout the hospitalization. The need to follow up with her primary care provider at [facility] and with her psychiatric caregiver at [facility] was discussed with the patient daily. She is asked to follow-up at [facility] in 1-2 weeks and to schedule follow-up appointment at [facility] in the near future. Time spent with patient: discharge greater than 30 minutes Discharge Plan - Med Rec/Dispo Referrals/Follow Up: Sarah Bermudez APRN [Family Provider] - 1 Week (please call [phone] to schedule follow up appointment.) Robin Instructions: Bowel Obstruction (DC) Prescriptions: New Acetaminophen [Tylenol] 325 - 650 mg PO Q5H PRN tablet PRN Reason: Discomfort Amlodipine [Norvasc] 10 mg PO DAILY #30 tablet Continue Albuterol Sulfate [Proair Hfa] 2 puff INH Q4H PRN #1 [id number] PRN Reason: SHORTNESS OF AIR Budesonide/Formoterol 80/4.5 [Symbicort Inhaler] 1 puff INH BID #1 inhaler Levothyroxine Sodium 300 mcg PO ACB #30 tablet No Action Amlodipine Besylate 10 mg PO DAILY #0 Discharge Instructions/Outpatient Orders: Final Provider Discharge Instructions Location: Determined By Patient - Disposition 01 Discharged Home, Self-Care
== END 2017-05-11 13:15 | disposition home or self-care (01) | DRG 389 ==
LOC: ED 13:28 → SRG 18:24
PROVIDERS: ADMIT Hospitalist; ATTEND Hospitalist